=== PATIENT | male | born 2000 | race Caucasian/White ===

== ENCOUNTER 2022-04-06 12:05 | Day surgery (SDC) | payer BC, OTHER ==
[2022-04-06] MEDS ORDERED: Ringers Lactate 1,000 ML IV ONE (12:34)
[2022-04-06] MEDS ORDERED: CEFAZOLIN SODIUM 2 GM/VIAL ONE (12:34)
[2022-04-06 12:55] VITALS: O2SAT 100
[2022-04-06] MEDS ORDERED: MIDAZOLAM HCL 2 MG/2 ML INJ ONE (15:12)
[2022-04-06] MEDS ORDERED: FENTANYL CITR 100 MCG/2 ML ONE (15:12)
[2022-04-06] MEDS ORDERED: propofoL 200 MG/20 ML VIAL IV ONE (15:12)
[2022-04-06] MEDS ORDERED: LIDOCAINE 2% MPF 5 ML VIAL ONE (15:13)
[2022-04-06] MEDS ORDERED: ROCURONIUM 50 MG/5 ML VIAL IV ONE (15:14)
[2022-04-06] MEDS ORDERED: BUPIVACAINE 0.25% PF 30 ML VIAL ONE (15:14)
[2022-04-06] MEDS ORDERED: dexAMETHasone 10 MG/ML VIAL ONE (15:39)
--- NOTE | 2022-04-06 16:42 | P.OP ---
Preoperative diagnosis: RIGHT inguinal hernia Postoperative diagnosis: RIGHT inguinal hernia Primary procedure: Open RIGHT Inguinal Hernia Repair with mesh Anesthesia: GETA + Local Estimated blood loss: <10cc Specimen: Hernia Sack Findings: heavily scarred indirect inguinal hernia Complications: None Transferred to: Recovery Room Condition: Good
[2022-04-06] MEDS ORDERED: KETOROLAC 30 MG/ML INJ ONE (16:51)
[2022-04-06 17:58] VITALS: BP 131/67; TEMP 98
[2022-04-06] MEDS ORDERED: HYDROCODONE/APAP 5/325 MG TAB ONE (18:09)
--- NOTE | 2022-04-06 23:00 | OP ---
Date of Procedure: 04/06/2022 Surgeon: Ezequiel Hooker MD, Preoperative Diagnosis: Right inguinal hernia. Postoperative Diagnosis: Right inguinal hernia. Procedure Performed: Open right inguinal hernia repair with mesh. Anesthesia: General endotracheal plus local with 0.25% Marcaine. Estimated Blood Loss: Less than 10 cc. Specimen: Hernia sac. Findings: 1.Heavily scarred indirect inguinal hernia firmly attached to spermatic cord and structures requirin g meticulous dissection. 2.Well-defined external oblique aponeurosis. Complications: None. The patient was transferred to recovery room in good condition. Procedure In Detail: After informed consent was obtained, the patient was brought to the operating r oom and prepped and draped in the usual sterile fashion. After adequate anesthesia was achieved, a l ower inguinal incision was made down to subcu tissues with a 15 blade and down through Camper fat and Jimmy fascia to expose the external oblique aponeurosis using a combination of sharp dissection and electrocautery. I then opened the external oblique aponeurosis sharply with a 15 blade. I then ope ruddy it in its entirety using a Metzenbaum scissor. Snaps were placed on the medial and lateral shelv ing edge. I then identified and dissected free the spermatic cord and structures and placed a Penros e drain underneath this, which allowed for dissection of a very firmly attached hernia sac, which was an indirect hernia sac in nature from the medial aspect of the deep inguinal ring. This was dissect ed free of the spermatic cord and structures, opened up and allowed for dissection and a high ligatio n of the sac was performed at this point, and the sac was imbricated, placed in the preperitoneal spa ce, and a medium Bard PerFix plug and patch hernia repair system was sized and the plug was placed in the preperitoneal space at this time and secured circumferentially around using 3 interrupted 2-0 PD S sutures with good approximation of the mesh. At this point, I sized the hernia patch system approp riately and trimmed the mesh accordingly, placed it on the floor of the inguinal canal underneath the spermatic cord and structure and reconstituted the deep inguinal ring, securing it initially at the pubic tubercle on the medial aspect and on the medial and lateral shelving edges of the internal obli que aponeurosis and the under surface of the inguinal ligament. At this point, after these were secu red, the deep inguinal ring was reconstituted with same said 2-0 PDS suture. The area was copiously irrigated at this point, and the external oblique aponeurosis was then closed in a running fashion us ing a 3-0 Vicryl suture. Deep dermal plane was then reapproximated after irrigating and cleansing th e surgical field once again with sterile saline. The deep dermal plane was closed using interrupted 3-0 Vicryl sutures. Skin was closed with 4-0 Monocryl in a running fashion and Dermabond placed over top. The patient tolerated the procedure without evidence of any complication and transferred to [facility] in good condition. All counts were correct at the end of the case. VERONICA/PRINCE Voice ID: [id number] Report ID: [id number]
== END 2022-04-06 18:42 | disposition home or self-care (01) ==
LOC: OR 12:05
PROVIDERS: ATTEND Surgery
PROC: 0YU50JZ Supplement Right Inguinal Region with Synthetic Substitute, Open Approach (ICD-10-PCS; principal; 2022-04-06 11:30)
DX: K40.90 Unilateral inguinal hernia, without obstruction or gangrene, not specified as recurrent (principal)
CPT/HCPCS: 88302; 49505; J2704; J2001; J2250; J3010; J1100; J7120